=== PATIENT | male | born 1960 | race Caucasian/White ===

== ENCOUNTER 2017-05-12 09:46 | Emergency (ER) | payer OTHER, BC ==
[2017-05-12] MEDS ORDERED: Lidocaine 2% with EPINEPHrine 1:100,000 20 ML MDV INFILT ONE (10:00)
[2017-05-12 10:05] VITALS: BP 154/81
[2017-05-12] MEDS ORDERED: Cephalexin 500 MG Cap PO ONE (11:26)
[2017-05-12] MEDS ORDERED: Diphtheria,Pertussis(Acell),Tetanus Vaccine 0.5 ML SDV IM ONE (11:29)
--- NOTE | 2017-05-12 14:08 | ER ---
DATE SEEN: 05/12/2017 HISTORY: The patient works at the [employer] and he had a heavy metal fall on his left hand resulting in a laceration, the palmar surface of the left hand from the distal palmar crease to the proximal PIP volar crease. The patient has no loss of sensation. He has moderate pain. No compromised range of motion. The patient is otherwise healthy. He is not a smoker. No diabetes, heart disease, or other serious illnesses. MEDICATIONS: He takes multivitamins, aspirin, glucosamine for arthritis, and calcium carbonate with vitamin D. PAST MEDICAL HISTORY: No other significant health history abnormalities. REVIEW OF SYSTEMS: Otherwise negative. PHYSICAL EXAMINATION: VITAL SIGNS: 154/81, heart rate 81, respirations 16, oxygen saturation 99%, temperature 37.3 degrees. EXTREMITIES: Left hand palmar surface, distal palmar crease to proximal (PIP palmar crease) has a longitudinal laceration, which has not involved the tendinous structures. Does not involve the samantha-tenderness sheath - tenon sheath. Sensation is intact. Capillary refill is intact. Range of motion is intact. No suggestion of fracture. The wound was cleansed vigorously in the surgical scrub tank and then again with running water, then scrubbed again after anesthesia with infiltrate and digital block performed with 2% lidocaine with epinephrine. He had good relief. Wound was reexplored and flushed and again cleansed, and then closed with interrupted 11 stitches of 4-0 Ethilon. The patient tolerated the procedure well. Follow up with doctor in a week. PLAN: Use Keflex 500 mg t.i.d., 12 tablets of Vicodin 1 q.4 hours p.r.n. pain, and the patient may use Keflex 500 mg orally in the ED. If any sign of infection, redness, increased swelling, tenderness, or linear angiitis, he is to return to the ED and/or see his doctor immediately. Elevate his hand today. He is off work today and he may start working on the following day, 05/13/2017. He is advised to wear a glove with his work. The patient was seen at 10 o'clock. /[id number] ROSCOE/JEAN
--- NOTE | 2017-05-27 00:22 | ER ---
DATE SEEN: 05/12/2017 DIAGNOSIS: Left hand palmar laceration, 10 cm long, single-layer closure. /[id number] ROSCOE/JEAN
== END 2017-05-12 11:40 | disposition home or self-care (01) ==
LOC: FB.ED 09:46
PROC: 0HQGXZZ Repair Left Hand Skin, External Approach (ICD-10-PCS; principal; 2017-05-12)
DX: S61.412A Laceration without foreign body of left hand, initial encounter (principal); W20.8XXA Other cause of strike by thrown, projected or falling object, initial encounter
CPT/HCPCS: 12004; 90472; 90715; 96372; 99000; 99282; A9270; 12002